=== PATIENT | male | born 1990 | race African-American/Black ===

== ENCOUNTER 2018-01-14 21:37 | Emergency (ER) | payer OTHER ==
[~2018-01-14 21:37] MED LIST: Iopamidol 370 76% 100 ML VIAL ONE
[2018-01-14 22:05] LABS: Bilirubin Negative (Negative); Blood, Urine Negative (Negative); Clarity Slightly Cloudy (Clear); Glucose, Urine (Dipstick) Negative (Negative); Leukocyte Negative (Negative); Nitrite Negative (Negative); Protein, Urine (Dipstick) Negative (Neg-Trace); Specific Gravity, Urine 1.025 (1.005-1.030); Urobilinogen 0.2 mg/dL (0.2-1.0); pH, Urine 6.5 (5.0-9.0)
[2018-01-14] MEDS ORDERED: Dicyclomine 20 MG TAB ONE (22:06)
[2018-01-14 22:34] LABS: ALT (SGPT) 81 U/L (8-55); AST (SGOT) 37 U/L (5-34); Albumin 4.3 g/dL (3.5-5.0); Alkaline Phosphatase 134 U/L (40-150); Anion Gap 14 mmol/L (10-20); BUN (Urea Nitrogen) 16 mg/dL (8.9-20.6); Bilirubin, Total 0.3 mg/dL (0.2-1.2); Calc. Creatinine Clearance 0 mL/min (70-130); Calcium 9.7 mg/dL (7.8-10.44); Carbon Dioxide 26 mmol/L (22-29); Chloride 104 mmol/L (98-107); Estimated GFR-MDRD Greater than 90; Globulin 3.1 g/dL (2.4-3.5); Glucose 106 mg/dL (70-105); Potassium 3.7 mmol/L (3.5-5.1); Protein, Total 7.4 g/dL (6.0-8.3); Sodium 140 mmol/L (136-145)
[2018-01-14 22:36] LABS: Lymphocytes 29 % (21-51); MDiff Complete? YES; Mean Corpuscular HGB CONC 32.1 g/dL (32.0-36.0); Mean Corpuscular Hemoglobin 26.2 pg (27.0-31.0); Mean Corpuscular Volume 81.4 fL (78.0-98.0); Mean Platelet Volume 10.1 fL (7.4-10.4); Monocytes 9 % (0-10); Neutrophil 55 % (42-75); Platelet Count 200 thou/uL (130-400); Reactive Lymphocytes 7 % (0-10); Red Blood Cell (RBC) Count 5.75 mill/uL (4.70-6.10); White Blood Cell (WBC) Count 7.6 thou/uL (4.8-10.8)
--- NOTE | 2018-01-14 22:55 | CT ---
CT ABDOMEN AND PELVIS WITH IV CONTRAST: 01/14/18 HISTORY: Left lower quadrant abdominal pain. FINDINGS: The lung bases are clear. The osseous structures have a normal appearance. There is mild diminished attenuation of the liver. While precontrast imaging was not performed, this may be related to mild fatty infiltration. The liver otherwise has a normal CT appearance. The spleen, pancreas, bilateral adrenal glands, kidneys, and abdominal aorta demonstrate a normal CT appearance. The urinary bladder is decompressed and not well evaluated on this exam. The appendix is visualized and normal in caliber. The small bowel loops are normal in caliber. No free fluid, fluid collection, or lymphadenopathy is seen in the abdomen or pelvis. There is a small fat containing umbilical hernia noted. IMPRESSION: 1. No acute findings are seen in the abdomen or pelvis. 2. Mild fatty infiltration of the liver. 3. Small fat containing umbilical hernia. POS: [facility]
== END 2018-01-14 23:29 | disposition home or self-care (01) ==
LOC: SCSER 21:37
DX: R10.32 Left lower quadrant pain (principal)
CPT/HCPCS: 74177; 80053; 81003; 85025; 87086; 96360